=== PATIENT | male | born 1965 | race Caucasian/White ===

== ENCOUNTER → 2023-01-05 | Outpatient (CLI) | payer OTHER | END | disposition home or self-care (01) | LOC: LAB 09:45 → LAB SHORT 09:45 → EDSTATUS 15:16 | DX: K70.31 Alcoholic cirrhosis of liver with ascites (principal) | CPT/HCPCS: 82653 ==

== ENCOUNTER 2023-02-12 15:49 | Emergency (ER) | payer OTHER ==
[~2023-02-12] VITALS: Ht 190.5 cm; Wt 63.5 kg
[2023-02-12 16:10] VITALS: BP 119/80
[2023-02-12] MEDS ORDERED: B-1100 M2 PO (16:20)
[2023-02-12] MEDS ORDERED: Budeprion Xl300 MG PO (16:21)
[2023-02-12] MEDS ORDERED: PANCRELIPASE PO (16:21)
[2023-02-12] MEDS ORDERED: TAMS.4ER PO (16:22)
[2023-02-12] MEDS ORDERED: AMLO10 PO (16:22)
[2023-02-12] MEDS ORDERED: Vitamin D1000 UNI1 PO (16:23)
[2023-02-12] MEDS ORDERED: ALDACTONE100 MG PO (16:24)
[2023-02-12] MEDS ORDERED: FURO20 PO (16:24)
[2023-02-12] MEDS ORDERED: CYCL10 PO (16:25)
[2023-02-12] MEDS ORDERED: GABA300 PO (16:25)
[2023-02-12] MEDS ORDERED: NALOXONE H0.4 MG/1 M (16:26)
[2023-02-12 16:53] LABS: BASOPHILS ABSOLUTE AUTO 0.09 K/mm3 (0.00-0.23); BASOPHILS PERCENT AUTO 1 % (0-2); EOSINOPHILS ABSOLUTE AUTO 0.05 K/mm3 (0.00-0.68); EOSINOPHILS PERCENT AUTO 1 % (0-6); Hematocrit 35.2 % (37.0-53.0); Hemoglobin 12.5 g/dL (13.5-17.5); IMMATURE GRAN ABSOLUTE AUTO 0.04 K/mm3 (0.00-0.10); IMMATURE GRAN PERCENT AUTO 1 % (0-1); LYMPHOCYTES PERCENT AUTO 14 % (21-46); MONOCYTES ABSOLUTE AUTO 0.68 K/mm3 (0.16-1.47); MONOCYTES PERCENT AUTO 10 % (4-13); Mean Corpuscular HGB 34.2 pg (26.0-34.0); Mean Corpuscular HGB Conc 35.5 g/dL (31.5-36.5); Mean Corpuscular Volume 96 fL (80-100); Mean Platelet Volume 10.1 fL (9.1-12.4); NEUTROPHILS ABSOLUTE AUTO 5.18 K/mm3 (1.96-9.15); NEUTROPHILS PERCENT AUTO 74 % (41-73); Platelet Count 215 K/mm3 (150-400); RDW Coefficient Variation 12.6 % (11.7-14.2); RDW Standard Deviation 44.3 fL (35.1-46.3); Red Blood Cell Count 3.65 M/mm3 (4.30-5.90); White Blood Cell Count 7.04 K/mm3 (4.00-11.30)
[2023-02-12 17:14] LABS: Albumin, Blood 3.2 g/dL (3.4-5.0); Bilirubin, Total 0.8 mg/dL (0.1-1.0); Bun/Creatinine Ratio 23.1 (12.0-20.0); Creatinine, Blood 0.48 mg/dL (0.60-1.20); Globulin, Blood 3.3 g/dL (2.2-4.0); Potassium, Blood 3.3 mmol/L (3.5-5.5); Total Protein, Blood 6.5 g/dL (6.4-8.2)
[2023-02-12] MEDS ORDERED: Flomax0.4 MG PO (18:03)
[2023-02-12] MEDS ORDERED: HYDR1TAB94 PO (18:03)
== END 2023-02-12 18:16 | disposition home or self-care (01) ==
LOC: ER 15:49
PROVIDERS: Physician Assistant
DX: N13.2 Hydronephrosis with renal and ureteral calculous obstruction (principal); E11.65 Type 2 diabetes mellitus with hyperglycemia; Z88.8 Allergy status to other drugs, medicaments and biological substances; Z91.030 Bee allergy status; Z79.899 Other long term (current) drug therapy
CPT/HCPCS: 80053; 82947; 85025; 99284; A9270; J1815

== ENCOUNTER 2023-11-15 10:46 | Emergency (ER) | payer OTHER ==
[~2023-11-15] VITALS: Ht 190.5 cm; Wt 68.0 kg
[~2023-11-15 10:46] MED LIST: ACET500 PO; ALDACTONE100 MG PO; ALEVE ARTHRITI100 GM TOP; AMLO10 PO; B-1100 M2 PO; BELBUCA75 MCG BC; Budeprion Xl300 MG PO; CYCL10 PO; DOCU100 PO; EPIPEN0.3 MG/0.3 IM; FURO40 PO; Flomax0.4 MG PO; GABA300 PO; GLUCERNA PO; GLUCOSE4 GM PO; HYDR1TAB94 PO; LACT PO; NALOXONE H0.4 MG/1 M; NICO21TP TOP; NOVOLOG FL100 UNIT/3 SC; Nicorette4 MG BC; OMEP20ER PO; PANCRELIPASE PO; SALIVA SUBSTITUTE MM; TAMS.4ER PO; TRAZ50 PO; Vitamin D1000 UNI1 PO; [UNRECOGNIZED DRUG - OTHER] PO
[2023-11-15 12:15] VITALS: BP 139/88
== END 2023-11-15 12:20 | disposition home or self-care (01) ==
LOC: ER 10:46
DX: Z47.1 Aftercare following joint replacement surgery (principal); E11.9 Type 2 diabetes mellitus without complications; Z87.891 Personal history of nicotine dependence; Z88.8 Allergy status to other drugs, medicaments and biological substances; Z91.038 Other insect allergy status; Z79.4 Long term (current) use of insulin; Z79.899 Other long term (current) drug therapy
CPT/HCPCS: 99283

== ENCOUNTER 2024-03-09 03:00 | Emergency (ER) | payer OTHER ==
[~2024-03-09] VITALS: Ht 190.5 cm; Wt 81.7 kg
[2024-03-09] MEDS ORDERED: Morphine Sulfate 4 MG/1 ML Injection IV ONE (04:15)
[2024-03-09 04:52] LABS: BASOPHILS PERCENT AUTO 1 % (0-2); EOSINOPHILS ABSOLUTE AUTO 0.11 K/mm3 (0.00-0.68); EOSINOPHILS PERCENT AUTO 1 % (0-6); Hematocrit 42.9 % (37.0-53.0); Hemoglobin 14.7 g/dL (13.5-17.5); IMMATURE GRAN ABSOLUTE AUTO 0.02 K/mm3 (0.00-0.10); IMMATURE GRAN PERCENT AUTO 0 % (0-1); LYMPHOCYTES ABSOLUTE AUTO 2.46 K/mm3 (0.84-5.20); LYMPHOCYTES PERCENT AUTO 27 % (21-46); MONOCYTES ABSOLUTE AUTO 0.68 K/mm3 (0.16-1.47); MONOCYTES PERCENT AUTO 8 % (4-13); Mean Corpuscular HGB 31.5 pg (26.0-34.0); Mean Corpuscular HGB Conc 34.3 g/dL (31.5-36.5); Mean Corpuscular Volume 92 fL (80-100); NEUTROPHILS ABSOLUTE AUTO 5.75 K/mm3 (1.96-9.15); NEUTROPHILS PERCENT AUTO 63 % (41-73); Platelet Count 248 K/mm3 (150-400); RDW Coefficient Variation 13.4 % (11.7-14.2); RDW Standard Deviation 45.7 fL (35.1-46.3); Red Blood Cell Count 4.67 M/mm3 (4.30-5.90); White Blood Cell Count 9.12 K/mm3 (4.00-11.30)
[2024-03-09 05:27] LABS: Anion Gap 15 mmol/L (3-11); Blood Urea Nitrogen 20 mg/dL (8-24); Bun/Creatinine Ratio 26.2 (12.0-20.0); C-REACTIVE PROTEIN, EXT RANGE <0.290 mg/dL (0.000-0.300); CO2, Blood 18 mmol/L (21-32); Calcium, Blood 8.9 mg/dL (8.5-10.1); Chloride, Blood 108 mmol/L (98-108); Creatinine, Blood 0.76 mg/dL (0.60-1.20); Glomerular Filtration Rate 103 (60-); Glucose, Blood 81 mg/dL (70-99); Potassium, Blood 4.1 mmol/L (3.5-5.5); Sodium, Blood 137 mmol/L (136-145)
[2024-03-09] MEDS ORDERED: HYDROmorphone HCl/Pf 1MG SYR IV ONE (06:55)
[2024-03-09 09:13] VITALS: BP 119/86
== END 2024-03-09 09:15 | disposition home or self-care (01) ==
LOC: ER 03:00
PROVIDERS: Emergency Medicine
DX: M25.551 Pain in right hip (principal); E11.9 Type 2 diabetes mellitus without complications; Z79.4 Long term (current) use of insulin; Z88.8 Allergy status to other drugs, medicaments and biological substances; Z91.030 Bee allergy status; Z79.899 Other long term (current) drug therapy
CPT/HCPCS: 72193; 73502; 80048; 85025; 85651; 86140; 96374-59; 96375; 99284-25; J1170; J1171; J2270; Q9967

== ENCOUNTER 2024-03-10 18:51 | Emergency (ER) | payer OTHER ==
[~2024-03-10] VITALS: Ht 190.5 cm; Wt 81.7 kg
[2024-03-10 19:58] LABS: BASOPHILS ABSOLUTE AUTO 0.13 K/mm3 (0.00-0.23); BASOPHILS PERCENT AUTO 2 % (0-2); EOSINOPHILS ABSOLUTE AUTO 0.09 K/mm3 (0.00-0.68); EOSINOPHILS PERCENT AUTO 1 % (0-6); Hematocrit 43.5 % (37.0-53.0); Hemoglobin 15.1 g/dL (13.5-17.5); IMMATURE GRAN ABSOLUTE AUTO 0.02 K/mm3 (0.00-0.10); IMMATURE GRAN PERCENT AUTO 0 % (0-1); LYMPHOCYTES ABSOLUTE AUTO 2.61 K/mm3 (0.84-5.20); LYMPHOCYTES PERCENT AUTO 30 % (21-46); MONOCYTES ABSOLUTE AUTO 0.77 K/mm3 (0.16-1.47); MONOCYTES PERCENT AUTO 9 % (4-13); Mean Corpuscular HGB 31.5 pg (26.0-34.0); Mean Corpuscular HGB Conc 34.7 g/dL (31.5-36.5); Mean Corpuscular Volume 91 fL (80-100); Mean Platelet Volume 8.8 fL (9.1-12.4); NEUTROPHILS ABSOLUTE AUTO 5.18 K/mm3 (1.96-9.15); NEUTROPHILS PERCENT AUTO 59 % (41-73); Platelet Count 293 K/mm3 (150-400); RDW Coefficient Variation 13.3 % (11.7-14.2); RDW Standard Deviation 45.1 fL (35.1-46.3)
[2024-03-10 20:15] LABS: Albumin, Blood 3.8 g/dL (3.4-5.0); Albumin/Globulin Ratio 1.1 (0.8-1.8); Bilirubin, Total 0.7 mg/dL (0.1-1.0); Bun/Creatinine Ratio 24.3 (12.0-20.0); Calcium, Blood 8.6 mg/dL (8.5-10.1); Creatinine, Blood 0.49 mg/dL (0.60-1.20); Globulin, Blood 3.4 g/dL (2.2-4.0); Potassium, Blood 4.2 mmol/L (3.5-5.5); Total Protein, Blood 7.2 g/dL (6.4-8.2)
[2024-03-11] MEDS ORDERED: Ondansetron HCl 2 MG / ML 2ML Vial IV ONE (04:00)
[2024-03-11] MEDS ORDERED: Metoclopramide HCl 5MG / ML 2ML Vial IV ONE (05:30)
[2024-03-11] MEDS ORDERED: NS 1,000 ML IV SCH (05:30)
[2024-03-11 05:52] LABS: Source, Urine Clean Catch
[2024-03-11] MEDS ORDERED: DiphenhydrAMINE HCl 50 MG/ML 1ML Vial IV ONE (05:55)
[2024-03-11 05:59] LABS: Bilirubin, Urine Neg (Neg); Blood, Urine Neg (Neg); Glucose Qualitative, Urine Neg (Neg); Ketones, Urine 3+ (Neg); Leukocyte Esterase, Urine Neg (Neg); Nitrite, Urine Neg (Neg); Protein, Urine 1+ (Neg); Urobilinogen, Urine NORM (Normal)
[2024-03-11 06:05] LABS: Appearance, Urine Clear (Clear); Color, Urine Yellow (P-Yellow)
[2024-03-11 06:15] LABS: Bicarbonate Venous 21.9 mmol/L (24.0-30.0); PCO2 Venous 32.4 mmHg (38-42); pH Blood Venous 7.41 (7.34-7.37)
[2024-03-11 06:38] LABS: Beta-hydroxybutyrate 60.9 mg/dL (0.2-2.8)
[2024-03-11 07:29] LABS: Acetaminophen, Random <2.0 ug/mL (10.0-30.0); Salicylate 1.9 mg/dL (2.8-20.0)
[2024-03-11] MEDS ORDERED: TiZANidine HCl 4 MG Tab PO ONE (07:45)
[2024-03-11] MEDS ORDERED: Ketorolac Tromethamine 30mg Vial IM ONE (07:45)
[2024-03-11 09:05] LABS: U Amphetamine Screen Not Detected; U Barbituate Screen Not Detected; U Benzodiazapine Screen Not Detected; U Buprenorphine Screen Not Detected; U Cannabinoids Screen DETECTED; U Cocaine Screen Not Detected; U Methadone Screen Not Detected; U Methamphetamine Screen Not Detected; U Opiates Screen Not Detected; U Oxycodone Screen DETECTED; U Phencyclidine Screen Not Detected
[2024-03-11 12:11] VITALS: BP 133/94
== END 2024-03-11 12:13 | disposition home or self-care (01) ==
LOC: ER 18:51
PROVIDERS: Emergency Medicine
DX: M25.551 Pain in right hip (principal); G89.29 Other chronic pain; R11.2 Nausea with vomiting, unspecified; E86.0 Dehydration; R74.01 Elevation of levels of liver transaminase levels; F10.90 Alcohol use, unspecified, uncomplicated; K70.10 Alcoholic hepatitis without ascites; E11.10 Type 2 diabetes mellitus with ketoacidosis without coma; Z79.899 Other long term (current) drug therapy; Z79.4 Long term (current) use of insulin; Z88.8 Allergy status to other drugs, medicaments and biological substances; Z91.030 Bee allergy status; Z96.641 Presence of right artificial hip joint
CPT/HCPCS: 36415; 72193; 76705; 80053; 80320; 82010; 82803; 82947; 83605; 83690; 85025; 87040; 87077; 87186; 93005; 93010; 96361; 96374; 96375; 99284-25; A9270; G0480; J1200; J1885; J2405; J2765; J7030; Q9967